=== PATIENT | female | born 1935 | race Hispanic/Latino ===

== ENCOUNTER 2021-06-22 10:58 | Day surgery (SDC) | payer MEDICARE, MEDICAID ==
[2021-06-22] MEDS ORDERED: diphenhydrAMINE 50 MG/ML VIAL ONE (11:19)
[2021-06-22] MEDS ORDERED: Acetaminophen 500 MG TAB ONE (11:19)
[2021-06-22] MEDS ORDERED: BAMLANIVIMAB 700 MG, ETESEVIMAB 700 MG/20 ML 1,400 MG in Sodium Chloride 0.9% 250 ML 25... IVPB SCH (11:45)
== END 2021-06-22 14:20 | disposition home or self-care (01) ==
LOC: CSHSDC/OP 10:58
PROVIDERS: ATTEND Family Medicine
DX: U07.1 COVID-19 (principal); Z23 Encounter for immunization
CPT/HCPCS: M0239; Q0239; J1200; J7050; M0245; Q0245